=== PATIENT | male | born 1955 | race Caucasian/White ===

== ENCOUNTER 2018-06-15 11:00 | Emergency (ER) | payer OTHER ==
[~2018-06-15] VITALS: Ht 170.2 cm; Wt 67.0 kg
[2018-06-15 11:20] VITALS: BP 142/81
[2018-06-15] MEDS ORDERED: CARBAMIDE PEROXIDE EAR DROPS 6.5%, 15ML ONE (12:27)
[2018-06-15] MEDS ORDERED: CARBAMIDE PEROXIDE EAR DROPS 6.5%, 15ML LEFT EAR ONE (12:30)
== END 2018-06-15 13:25 | disposition home or self-care (01) ==
LOC: ED 11:33
DX: H61.22 Impacted cerumen, left ear (principal)
CPT/HCPCS: 69209; 99282